=== PATIENT | female | born 1975 | race Caucasian/White ===

== ENCOUNTER 2021-10-07 14:54 | Emergency (ER) | payer OTHER ==
[2021-10-07 19:56] LABS: BASOPHIL 0.7 % (0-2); EOSINOPHIL 1.4 % (0-5); HCT 48.4 % (37.0-47.0); HGB 16.6 g/dl (12.5-16.0); LYMPHOCYTE 47.8 % (15-48); MCH 30.8 pg (25.0-31.0); MCHC 34.3 g/dL (32.0-36.0); MCV 89.8 fL (78.0-100.0); MPV 10.9 fL (6.0-9.5); NEUTROPHIL 44.9 % (41-80); NRBC 0; PLT 327 K/uL (150-400); RBC 5.39 M/uL (4.20-5.40); WBC 8.6 K/uL (4.0-10.5)
[2021-10-07 19:57] LABS: BILIRUBIN NEGATIVE (NEGATIVE); BLOOD NEGATIVE Ery/uL (NEGATIVE); CLARITY CLEAR (CLEAR); COLOR YELLOW (YELLOW); GLUCOSE (U) NORMAL (NORMAL); LEUKOCYTES TRACE Leu/uL (NEGATIVE); NITRITE NEGATIVE (NEGATIVE); PROTEIN NEGATIVE (NEGATIVE); SPECIFIC GRAVITY 1.015 (1.001-1.030); UROBILINOGEN 0.2 mg/dL (0.2-1.0)
[2021-10-07 19:58] LABS: AMPHETAMINES NEGATIVE (NEGATIVE); BARBITURATES NEGATIVE (NEGATIVE); ECSTASY (MDMA) NEGATIVE (NEGATIVE); MARIJUANA (THC) NEGATIVE (NEGATIVE); METHADONE NEGATIVE (NEGATIVE); OPIATES NEGATIVE (NEGATIVE); OXYCODONE NEGATIVE (NEGATIVE)
[2021-10-07 20:04] LABS: BACTERIA 1+; URINARY RBC RARE
[2021-10-07 20:39] LABS: CREATININE 1.23 mg/dL (0.51-0.95); POTASSIUM 4.9 mmol/L (3.5-5.1)
[2021-10-07 20:49] LABS: ALBUMIN 4.2 g/dL (3.4-5.0); BILIRUBIN - TOTAL 0.4 mg/dL (0.2-1.0); FT4 (FREE T4) 1.34 ng/dL (0.76-1.46); GLOBULIN (CALCULATION) 3.5 g/dL; MAGNESIUM 2.2 mg/dL (1.8-2.4); TOTAL PROTEIN 7.7 g/dL (6.4-8.2)
[2021-10-07 22:32] LABS: BUN/CREAT RATIO (CALC) 23.1 RATIO; CREATININE 1.04 mg/dL (0.51-0.95); POTASSIUM 4.3 mmol/L (3.5-5.1)
== END 2021-10-07 23:59 | disposition home or self-care (01) ==
LOC: FER 14:54
PROVIDERS: Internal Medicine
DX: R20.2 Paresthesia of skin (principal); N17.9 Acute kidney failure, unspecified; I10 Essential (primary) hypertension; E11.9 Type 2 diabetes mellitus without complications; F17.210 Nicotine dependence, cigarettes, uncomplicated; Z88.0 Allergy status to penicillin
CPT/HCPCS: 36415; 72125; 80048; 80053; 80305; 81001; 82607; 83735; 84439; 84443; 85025; J7030; Q9967